=== PATIENT | male | born 1945 | race Caucasian/White ===

== ENCOUNTER → 2017-03-13 | Outpatient (CLI) | payer OTHER ==
[~2017-03-13] MED LIST: CMD75 PO; FLEC100T21 PO; FLM4 PO; LISI10TA PO; METO1TAB69 PO; OXYSR20 PO; PRAV20TA PO
[2017-03-13 16:42] LABS: BASO % 0.4 %; BASO ABS # 0.03 K/uL (0-0.2); COMPLETE YES; EOS % 2.1 %; HEMATOCRIT 46.8 % (42-52); IG% 0.2 %; LYMPH % 35.9 %; LYMPH ABS # 3.05 K/uL (1.2-3.4); MEAN CELL VOLUME 95.1 fL (80-100); MEAN CORPUSCULAR HEMOGLOBIN 31.3 pg (25-34); MEAN CORPUSCULAR HGB CONC 32.9 g/dl (32-36); MEAN PLATELET VOLUME 10.8 fL (7.4-10.4); MONO % 6.4 %; PLATELET COUNT 209 K/uL (130-400); RED BLOOD COUNT 4.92 M/uL (4.7-6.1)
--- NOTE | 2017-03-13 19:13 | DIAGNOSTIC IMAGING REPORT ---
THREE-PHASE BONE SCAN OF THE KNEES CLINICAL HISTORY: Left leg pain and swelling. Evaluate for evidence of loosening. COMPARISON STUDY: No previous studies for comparison. TECHNIQUE: 26.3 mCi of technetium 99m MDP was injected IV at 2:45 PM on March 13, 2017. Immediately following injection, blood flow images were obtained. Blood pool images were then obtained followed by 3 hour delayed phase imaging of the knees in multiple projections. FINDINGS: Blood flow and blood pool images demonstrate slight hyperemia projecting over the distal left femur on posterior projections. No additional sites of hyperemia are identified. Photopenic defect from left knee arthroplasty is noted. Delayed images demonstrate moderate uptake projecting over the left patella as well as a small focus of moderate uptake within the distal left femur shown best on lateral projection. Mild uptake adjacent to the right knee on delayed images is likely due to arthritis. IMPRESSION: 1. Abnormal 3 phase bone scan with a small focus of slight hyperemia and delayed uptake within the distal left femur. This finding is nonspecific but may be post traumatic. Loosening could appear similar although is considered less likely. 2. Mild uptake adjacent to the right knee on delayed images which suggests arthritis. Electronically signed by: Facundo Yun M.D. 03/13/2017 7:12 PM Dictated Date/Time: 03/13/2017 7:02 PM
== END | disposition home or self-care (01) ==
LOC: C.NUCL 14:07
DX: M25.562 Pain in left knee (principal)